=== PATIENT | male | born 1980 | race Caucasian/White ===

== ENCOUNTER 2018-09-19 00:34 | Emergency (ER) | payer OTHER ==
[2018-09-19 00:41] VITALS: BP 115/78
[2018-09-19] MEDS ORDERED: Ketorolac 60 MG/2 ML SDV IM ONE (00:59)
--- NOTE | 2018-09-19 01:04 | EDM.PDOC ---
ED HPI GENERAL MEDICAL PROBLEM - General Chief Complaint: General Stated Complaint: harnessed fall from railcar Time Seen by Provider: 09/19/18 00:48 Source of Information: Reports: Patient History Limitations: Reports: No Limitations - History of Present Illness INITIAL COMMENTS - FREE TEXT/NARRATIVE: Patient comes to ER for evaluation of generalized pain/tight muscles that developed over the last 12 hours since he fell of a rail car. Was harnessed at that time. Fell headfirst towards ground. When harness caught him after about a 6 foot fall he swung towards the car and made contact with it with his back. Did not hit head. No LOC. Had mild groin soreness immediately afterwards where the harness caught him. Able to finish work day. Discomfort currently present developed while he was laying in bed for the night. Feels stiff and sore in back/neck. Denies weakness/numbness. Able to urinate. No obvious bruises as of yet. 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 Denies: Hard of Hearing, Impaired Vision Cardiovascular History: Reports: None. Denies: Arrhythmia, Heart Murmur, High Cholesterol, Hypertension Respiratory History: Reports: None. Denies: Asthma, COPD Gastrointestinal History: Reports: None. 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 Denies: Concussion, Head Trauma Psychiatric History: Reports: None. Denies: Anxiety, Depression Endocrine/Metabolic History: Reports: None Hematologic History: Reports: None. Denies: Anemia Immunologic History: Reports: None Oncologic (Cancer) History: Reports: None Dermatologic History: Reports: None - Infectious Disease History Infectious Disease History: Reports: Chicken Pox - Past Surgical History GI Surgical History: Reports: Hernia, Abdominal, Other (See Below) Social & Family History - Caffeine Use Caffeine Use: Reports: Energy Drinks, Soda - Living Situation & Occupation Living situation: Reports: , with Family Occupation: Employed ED ROS GENERAL - Review of Systems Review Of Systems: See Below Constitutional: Reports: No Symptoms HEENT: Reports: No Symptoms Respiratory: Reports: No Symptoms. Denies: Shortness of Breath, Pleuritic Chest Pain GI/Abdominal: Reports: No Symptoms. Denies: Abdominal Pain : Reports: No Symptoms Musculoskeletal: Reports: Neck Pain, Back Pain, Muscle Stiffness. Denies: Arm Pain, Hand Pain, Leg Pain, Foot Pain, Joint Swelling Skin: Denies: Wound Neurological: Reports: No Symptoms. Denies: Headache, Numbness, Paresthesia, Tingling, Weakness Psychiatric: Reports: No Symptoms Hematologic/Lymphatic: Reports: No Symptoms ED EXAM, GENERAL - Physical Exam Exam: See Below Exam Limited By: No Limitations General Appearance: Alert, WD/WN, Mild Distress Eye Exam: Bilateral Eye: EOMI, PERRL Ears: Normal External Exam Nose: Normal Inspection Throat/Mouth: Normal Inspection, Normal Lips, Normal Voice, No Airway Compromise Head: Atraumatic, Normocephalic Neck: Supple, Other (tender with palpation bilateral SCM muscles). No: Lymphadenopathy (L), Lymphadenopathy (R), Tender Midline Respiratory/Chest: No Respiratory Distress, Lungs Clear, Normal Breath Sounds, No Accessory Muscle Use, Other (mild tenderness with palpation in pectoral areas where harness was located.) Cardiovascular: Regular Rate, Rhythm, No Edema, No Murmur GI/Abdominal: Normal Bowel Sounds, Soft, Non-Tender (Male) Exam: Normal Inspection, Scrotum Tenderness (L) (mild). No: Circumcised, Inguinal Lymphadenopathy, Scrotal Swelling, Scrotum Tenderness (R) , Testicular Tenderness (L), Testicular Tenderness (R) Rectal (Males) Exam: Deferred Back Exam: Paraspinal Tenderness (bilateral upper and mid back bilaterally). No : Vertebral Tenderness Extremities: Normal Inspection, Non-Tender, No Pedal Edema, Normal Capillary Refill Neurological: Alert, Oriented, CN II-XII Intact, Normal Cognition, Normal Gait, No Motor/Sensory Deficits Psychiatric: Anxious (mild) Skin Exam: Warm, Dry, Intact, Normal Color Course - Vital Signs Last Recorded V/S: Last Vital Signs Temp 36.4 C 09/19/18 00:36 Pulse 83 09/19/18 00:36 Resp 14 09/19/18 00:36 BP 115/78 09/19/18 00:36 Pulse Ox 100 09/19/18 00:36 - Orders/Labs/Meds Meds: Medications Discontinued Medications Generic Name Dose Route Start Last Admin Trade Name Freq PRN Reason Stop Dose Admin Ketorolac Tromethamine 60 mg 09/19/18 00:59 09/19/18 01:09 Toradol IM 09/19/18 01:00 60 mg ONETIME ONE Administration Tramadol HCl 50 mg 09/19/18 01:05 09/19/18 01:08 Ultram PO 09/19/18 01:06 50 mg ONETIME ONE Administration - Re-Assessments/Exams Free Text/Narrative Re-Assessment/Exam: 09/19/18 01:09 Diffuse muscle tenderness and tightness after harnessed fall from rail car. Patient drove self to ER. Toradol given as well as single PO dose Tramadol. No narcotic at this time as patient has to drive. Precautions reviewed. Will send patient home with ER bottles of Tramadol and Flexeril. Recommend follow up tomorrow, Tuesday, with primary provider for recheck. Departure - Departure Time of Disposition: :23 Disposition: Home, Self-Care 01 Condition: Good Clinical Impression: Muscle stiffness Fall Qualifiers: Encounter type: initial encounter Qualified Code(s): W19.XXXA - Unspecified fall, initial encounter - Discharge Information *PRESCRIPTION DRUG MONITORING PROGRAM REVIEWED*: Not Applicable *COPY OF PRESCRIPTION DRUG MONITORING REPORT IN PATIENT [place]: Not Applicable Instructions: Contusion, [id number] Referrals: Thuy Griffin PA-C [Primary Care Provider] - Forms: ED Department Discharge, ED Return to Work/School Form Additional Instructions: Take medications as prescribed. Do not take extra Tylenol or Ibuprofen or Aleve as the Tylenol can hurt your liver and the other two can hurt your kidneys. Stay hydrated with water to help flush medications through your system. Do not mix alcohol with the Flexeril and Tramadol you received in the ER. Make an appointment to see your primary provider tomorrow at the clinic. Get rechecked and review if the current medications are helping. Follow up otherwise as needed if you have worsening problems. No work until Tuesday. If further restrictions are needed then obtain those from your primary provider. Gentle activity and stretching recommended to help keep your muscles moving more easily.
[2018-09-19] MEDS ORDERED: traMADol 50 MG Tab PO ONE (01:05)
== END 2018-09-19 01:50 | disposition home or self-care (01) ==
LOC: LL.ED 00:34
DX: M43.6 Torticollis (principal); M54.6 Pain in thoracic spine; W17.89XA Other fall from one level to another, initial encounter; Y99.0 Civilian activity done for income or pay; Z79.899 Other long term (current) drug therapy
CPT/HCPCS: 96372; 99283; A9270-GY; J1885